=== PATIENT | female | born 1990 | race Caucasian/White ===

== ENCOUNTER 2021-02-27 14:30 | Emergency (ER) | payer OTHER ==
[~2021-02-27] VITALS: Ht 160 cm; Wt 108.9 kg
[2021-02-27] MEDS ORDERED: ANALPRAM HC 2.530 GM RECTAL (15:42)
== END 2021-02-27 16:04 | disposition home or self-care (01) ==
LOC: ER 14:30
DX: K64.4 Residual hemorrhoidal skin tags (principal)

== ENCOUNTER 2023-03-03 20:24 | Emergency (ER) | payer OTHER ==
[~2023-03-03] VITALS: Ht 160 cm; Wt 113.4 kg
[~2023-03-03 20:24] MED LIST: ANALPRAM HC 2.530 GM RECTAL
[2023-03-03] MEDS ORDERED: CLONAZEPAM0.5 MG PO (20:40)
[2023-03-03] MEDS ORDERED: WELLBUTRIN SR200 MG PO (20:40)
== END 2023-03-04 02:54 | disposition home or self-care (01) ==
LOC: ER 20:24
PROVIDERS: General Practice
DX: K52.89 Other specified noninfective gastroenteritis and colitis (principal)